=== PATIENT | female | born 1960 | race Caucasian/White ===

== ENCOUNTER → 2023-10-10 08:36 | Outpatient (REF) | payer MEDICARE, SELFPAY | LOC: WOUND 08:36 | PROVIDERS: ATTENDING PHYSICIAN Surgery | DX: T21.35XA Burn of third degree of buttock, initial encounter (principal); X15.8XXA Contact with other hot household appliances, initial encounter | CPT/HCPCS: 99203 ==

== ENCOUNTER → 2023-10-16 13:28 | Outpatient (REF) | payer MEDICARE, SELFPAY | LOC: WOUND 13:28 | PROVIDERS: ATTENDING PHYSICIAN Surgery | DX: T21.35XA Burn of third degree of buttock, initial encounter (principal); X16.XXXA Contact with hot heating appliances, radiators and pipes, initial encounter | CPT/HCPCS: 11042 ==

== ENCOUNTER → 2023-10-23 13:57 | Outpatient (REF) | payer MEDICARE, SELFPAY | LOC: WOUND 13:57 | PROVIDERS: ATTENDING PHYSICIAN Surgery | DX: I70.238 Atherosclerosis of native arteries of right leg with ulceration of other part of lower leg (principal); L97.813 Non-pressure chronic ulcer of other part of right lower leg with necrosis of muscle; L97.812 Non-pressure chronic ulcer of other part of right lower leg with fat layer exposed; I87.2 Venous insufficiency (chronic) (peripheral); F17.200 Nicotine dependence, unspecified, uncomplicated; I44.4 Left anterior fascicular block; I35.1 Nonrheumatic aortic (valve) insufficiency; J44.9 Chronic obstructive pulmonary disease, unspecified | CPT/HCPCS: 99213 ==